=== PATIENT | female | born 1945 | race Two or more races ===

== ENCOUNTER 2017-06-11 23:49 | Inpatient (IN) | payer SELFPAY ==
[~2017-06-11] VITALS: Ht 157.5 cm; Wt 68.0 kg
--- NOTE | 2017-06-12 00:12 | PHYS DOC ---
Adult General Chief Complaint Chief Complaint: HYPERGLYCEMIA HPI HPI Patient is a 72 year old F who presents with elevated blood sugars. Patient is an insulin dependent diabetic who is having an elevated blood sugars at home. Patient is B[place]an-speaking but family is translating. Patient describes epigastric pain associated with her elevated blood sugars. Patient complains of nausea with no vomiting. Patient states blood sugars at home and been in the 500s. Patient complains of a dry mouth. Patient denies any fevers. Patient is no other complaints. Review of Systems Review of Systems GEN: Elevated blood sugars HEENT: Denies blurred vision, sore throat CV: Denies chest pain RESP: Denies shortness of air, cough GI: Epigastric pain with nausea NEURO: Denies confusion, dizziness MSK: Denies weakness, joint pain/swelling Current Medications Current Medications Current Medications Medications (Trade) Dose Ordered Sig/Tracey Start Time Stop Time Status Last Admin Dose Admin Info (Do NOT chart on this entry -- for MONITORING) 1 each PRN DAILY PRN 06/12/17 00:45 06/14/17 00:44 Iohexol (Omnipaque 300 Mg/ml) 75 ml 1X ONCE 06/12/17 00:45 06/12/17 00:46 DC 06/12/17 01:15 75 ML Metoclopramide HCl (Reglan) 10 mg STK-MED ONCE 06/12/17 00:18 06/12/17 00:19 DC Sodium Chloride 1,000 ml @ 1,000 mls/hr 1X ONCE 06/12/17 00:30 06/12/17 01:29 DC 06/12/17 00:20 1,000 MLS/HR Allergies Allergies Allergies Coded Allergies Type Severity Reaction Last Updated Verified No Known Drug Allergies 06/12/17 No Physical Exam Physical Exam GEN.: No apparent distress. Alert and oriented. HEENT: Head is normocephalic, atraumatic NECK: Supple. LUNGS: CTAB. HEART: RRR, S1, S2 present. Peripheral pulses intact ABDOMEN: Soft, tenderness to palpation to the epigastric area with no rebound tenderness and no guarding and no abdominal distention. Positive bowel sounds. EXTREMITIES: Without any cyanosis. NEUROLOGIC: Normal speech, normal tone PSYCHIATRIC: Normal affect, normal mood. SKIN: No ulcerations Current Patient Data Vital Signs Vital Signs Date Time Temp Pulse Resp B/P (MAP) Pulse Ox O2 Delivery O2 Flow Rate FiO2 10/22/17 00:05 98.4 84 22 174/99 (124) 95 Room Air 98.4 Lab Values Laboratory Tests Test 06/12/17 00:01 06/12/17 00:10 06/12/17 00:25 Glucose (Fingerstick) 452 mg/dL (70-99) H White Blood Count 6.3 x10^3/uL (4.0-11.0) Red Blood Count 4.39 x10^6/uL (3.50-5.40) Hemoglobin 13.1 g/dL (12.0-15.5) Hematocrit 38.9 % (36.0-47.0) Mean Corpuscular Volume 89 fL (79-100) Mean Corpuscular Hemoglobin 30 pg (25-35) Mean Corpuscular Hemoglobin Concent 34 g/dL (31-37) Red Cell Distribution Width 13.4 % (11.5-14.5) Platelet Count 212 x10^3/uL (140-400) Neutrophils (%) (Auto) 47 % (31-73) Lymphocytes (%) (Auto) 43 % (24-48) Monocytes (%) (Auto) 7 % (0-9) Eosinophils (%) (Auto) 1 % (0-3) Basophils (%) (Auto) 2 % (0-3) Neutrophils # (Auto) 3.0 x10^3uL (1.8-7.7) Lymphocytes # (Auto) 2.7 x10^3/uL (1.0-4.8) Monocytes # (Auto) 0.5 x10^3/uL (0.0-1.1) Eosinophils # (Auto) 0.1 x10^3/uL (0.0-0.7) Basophils # (Auto) 0.1 x10^3/uL (0.0-0.2) Sodium Level 137 mmol/L (136-145) Potassium Level 3.8 mmol/L (3.5-5.1) Chloride Level 101 mmol/L (98-107) Carbon Dioxide Level 23 mmol/L (21-32) Anion Gap 13 (6-14) Blood Urea Nitrogen 10 mg/dL (7-20) Creatinine 0.8 mg/dL (0.6-1.0) Estimated GFR (Cockcroft-Gault) 70.9 BUN/Creatinine Ratio 13 (6-20) Glucose Level 488 mg/dL (70-99) H Calcium Level 8.8 mg/dL (8.5-10.1) Total Bilirubin 0.3 mg/dL (0.2-1.0) Aspartate Amino Transferase (AST) 13 U/L (15-37) L Alanine Aminotransferase (ALT) 20 U/L (14-59) Alkaline Phosphatase 137 U/L (46-116) H Total Protein 7.1 g/dL (6.4-8.2) Albumin 3.4 g/dL (3.4-5.0) Albumin/Globulin Ratio 0.9 (1.0-1.7) L Lipase 222 U/L (73-393) Urine Collection Type U cath Urine Color Yellow Urine Clarity Clear Urine pH 7.0 Urine Specific [place] >=1.030 Urine Protein Negative mg/dL (NEG-TRACE) Urine Glucose (UA) >=1000 mg/dL (NEG) Urine Ketones (Stick) Negative mg/dL (NEG) Urine Blood Negative (NEG) Urine Nitrite Negative (NEG) Urine Bilirubin Negative (NEG) Urine Urobilinogen Dipstick 0.2 mg/dL (0.2 mg/dL) Urine Leukocyte Esterase Negative (NEG) Urine RBC Occ /HPF (0-2) Urine WBC Occ /HPF (0-4) Urine Squamous Epithelial Cells Occ /LPF Urine Amorphous Sediment Present /HPF Urine Bacteria 0 /HPF (0-FEW) Laboratory Tests 06/12/17 00:10 Laboratory Tests 06/12/17 00:10 EKG EKG [] Radiology/Procedures Radiology/Procedures CT scan abdomen and pelvis NAD[] Course & Med Decision Making Course & Med Decision Making Pertinent Labs and Imaging studies reviewed. (See chart for details) ED course: Patient was seen and examined emergency room abdominal workup was ordered along with a CT scan abdomen pelvis 0132: On reevaluation patient still having some nausea and vomiting, unexplained to the patient and family that she is not in DKA but will admit for further evaluation and management. Discussed CC/HP/PMH with Dr. Ramirez and recommends admit [] MDM: After reviewing the chart, CC/HPI/PMH, physical exam, [lab results], [ radiological results], I do not believe the patient has a intra-abdominal emergency or is in acute DKA but will admit the patient for further lesion and management of her hyperglycemia and hypertension. [] Dragon Disclaimer Dragon Disclaimer This electronic medical record was generated, in whole or in part, using a voice recognition dictation system. Departure Departure Impression: Primary Impression: Hyperglycemia Additional Impression: Hypertension Disposition: ADMITTED INPATIENT Admitting Physician: Other (Dr. Ramirez) Condition: STABLE Referrals: NO PCP (PCP) Problem Qualifiers EMMETT ART DO Jun 12, 2017 00:12
[2017-06-12] MEDS ORDERED: METOCLOPRAMIDE HCL 10 MG/2 ML VIAL. ONE (00:18)
[2017-06-12 00:26] LABS: BASO # 0.1 x10^3/uL (0.0-0.2); BASO % 2 % (0-3); EOS % 1 % (0-3); HEMATOCRIT 38.9 % (36.0-47.0); HEMOGLOBIN 13.1 g/dL (12.0-15.5); LYMPH # 2.7 x10^3/uL (1.0-4.8); LYMPH % 43 % (24-48); MEAN CORPUSCULAR HEMOGLOBIN 30 pg (25-35); MEAN CORPUSCULAR HGB CONC 34 g/dL (31-37); MEAN CORPUSCULAR VOLUME 89 fL (79-100); MONO % 7 % (0-9); NEUT % 47 % (31-73); PLATELET COUNT 212 x10^3/uL (140-400); RED BLOOD COUNT 4.39 x10^6/uL (3.50-5.40); RED CELL DISTRIBUTION WIDTH 13.4 % (11.5-14.5); WHITE BLOOD COUNT 6.3 x10^3/uL (4.0-11.0)
[2017-06-12] MEDS ORDERED: METOCLOPRAMIDE HCL 10 MG/2 ML VIAL. IV ONE (00:30)
[2017-06-12] MEDS ORDERED: IV NORMAL SALINE 1000ML BAG 1,000 ML IV ONE ×2 (00:30→01:45)
[2017-06-12 00:42] LABS: BILIRUBIN,URINE NEGATIVE (NEG); GLUCOSE,URINE >=1000 mg/dL (NEG); NITRITE,URINE NEGATIVE (NEG); PROTEIN,URINE NEGATIVE (NEG-TRACE); UROBILINOGEN,URINE 0.2 mg/dL (0.2 mg/dL)
[2017-06-12] MEDS ORDERED: CONTRAST GIVEN MC PRN (00:45)
[2017-06-12] MEDS ORDERED: IOHEXOL 300 MG/ML 75 ML VIAL IV ONE (00:45)
[2017-06-12 00:47] LABS: CALCIUM 8.8 mg/dL (8.5-10.1); CREATININE 0.8 mg/dL (0.6-1.0); GFR 70.9; POTASSIUM 3.8 mmol/L (3.5-5.1)
[2017-06-12 00:50] LABS: ALBUMIN 3.4 g/dL (3.4-5.0); ALBUMIN/GLOBULIN RATIO 0.9 (1.0-1.7); TOTAL BILIRUBIN 0.3 mg/dL (0.2-1.0); TOTAL PROTEIN 7.1 g/dL (6.4-8.2)
[2017-06-12 01:02] LABS: BACTERIA,URINE 0 /HPF (0-FEW); RBC,URINE OCC /HPF (0-2); WBC,URINE OCC /HPF (0-4)
[2017-06-12 01:03] LABS: SQUAMOUS EPITHELIAL CELL,UR OCC /LPF
--- NOTE | 2017-06-12 01:21 | RAD ---
CT ABD PELV W/ IV CONTRST ONLY dated 06/12/2017 1:01 AM Indication: Abdominal pain.abd pain; Omni 300, 75ml. Comparison: No comparison is available. Technique: Contiguous axial imaging the abdomen and pelvis performed after the intravenous administration of 75 cc Omnipaque 300 One or more of the following individualized dose reduction techniques were utilized for this examination: 1. Automated exposure control 2. Adjustment of the mA and/or kV according to patient size 3. Use of iterative reconstruction technique Findings: Limited images of lung bases are clear. Heart size within normal limits. No pleural or pericardial effusion. Liver, spleen, pancreas, adrenal glands, gallbladder and kidneys are unremarkable. No hydronephrosis. Unopacified GI tract is normal in caliber and contour. No focal bowel wall thickening. No inflammatory stranding in the mesentery. The appendix is normal in caliber. No ascites or lymphadenopathy. Images of pelvis show mildly distended urinary bladder. Uterus and adnexa are unremarkable. No free pelvic fluid or pelvic lymphadenopathy. Bone windows show no acute findings. Mild multilevel spondylosis. IMPRESSION: 1. No acute abnormality of abdomen or pelvis. Normal appendix. Electronically signed by: Og Florence MD (06/12/2017 1:18 AM) [facility]
[2017-06-12] MEDS ORDERED: MORPHINE SULFATE 4 MG/ML DISP.SYRIN. IV PRN (01:45)
[2017-06-12] MEDS ORDERED: ONDANSETRON PF 4 MG/2 ML VIAL. IV PRN (01:45)
[2017-06-12] MEDS ORDERED: DEXTROSE 50% 25 GM / 50ML DISP.SYRIN. IV PRN (02:30)
[2017-06-12] MEDS ORDERED: MECLIZINE HCL 12.5 MG TABLET. PO PRN (02:30)
[2017-06-12 02:43] VITALS: BP 147/70
[2017-06-12] MEDS ORDERED: FLU VACC QS2017-18 (36MOS+)/PF 0.5 ML SYRINGE. VAX IM ONE ×2 (03:00→09:00)
[2017-06-12] MEDS ORDERED: INSULIN ASPART 300 UNITS/3 ML INSULN.PEN SQ ONE (03:15)
[2017-06-12] MEDS: IV NORMAL SALINE 1000ML BAG 1,000 ML IV SCH ×2 (03:16→09:35)
[2017-06-12 03:27] VITALS: BP 147/70
[2017-06-12] MEDS ORDERED: INFLUENZA VAX SCREEN BY RX. MC PRN (03:45)
[2017-06-12 07:00] VITALS: BP 101/47
[2017-06-12] MEDS: INSULIN ASPART 300 UNITS/3 ML INSULN.PEN SQ SCH ×2 (08:00→12:05)
--- NOTE | 2017-06-12 09:13 | PDOC1 ---
History and Physical Date of Admission Date of Admission DATE: 06/12/17 TIME: 09:09 Source Source: Chart review, Patient History of Present Illness History of Present Illness Holli is a 72 year old F who was admitted overnight, acute abd pain and nausea and vomiting. She also had markedly elevated blood sugars. Patient is an insulin dependent diabetic who is having an elevated blood sugars at home. Patient is [place]ian- speaking but family is translating. Patient describes epigastric pain associated with her elevated blood sugars. Patient complains of nausea with no vomiting. Patient states blood sugars at home and been in the 500s. Patient complains of a dry mouth. Patient denies any fevers. Patient is no other complaints. Past Medical History Cardiovascular: HTN Endocrine: Diabetes Family History Family History: Diabetes Social History Smoke: No ALCOHOL: none Drugs: None Current Problem List Problem List Problems Medical Problems: (1) Hyperglycemia Status: Acute (2) Hypertension Status: Acute Problems: Current Medications Current Medications Current Medications Sodium Chloride 1,000 ml @ 1,000 mls/hr 1X ONCE IV Last administered on 06/12 00:20; Start 06/12/17 at 00:30; Stop 06/12/17 at 01:29; Status DC Metoclopramide HCl (Reglan) 10 mg 1X ONCE IV Last administered on 06/12/17 00:20; Start 06/12/17 at 00:30; Stop 06/12/17 at 00:31; Status DC Metoclopramide HCl (Reglan) 10 mg STK-MED ONCE .ROUTE ; Start 06/12/17 at 00:18 ; Stop 06/12/17 at 00:19; Status DC Iohexol (Omnipaque 300 Mg/ml) 75 ml 1X ONCE IV Last administered on 01:15; Start 06/12/17 at 00:45; Stop 06/12/17 at 00:46; Status DC Info (Do NOT chart on this entry -- for MONITORING) 1 each PRN DAILY PRN MC SEE COMMENTS; Start 06/12/17 at 00:45; Stop 06/14/17 at 00:44 Ondansetron HCl (Zofran) 4 mg PRN Q8HRS PRN IV NAUSEA/VOMITING Last administered on 06/12/17 01:52; Start 06/12/17 at 01:45; Stop 06/13/17 at 01 :44 Morphine Sulfate 4 mg PRN Q2HR PRN IV PAIN Last administered on 06/12/17 01: 52; Start 06/12/17 at 01:45; Stop 06/13/17 at 01:44 Sodium Chloride 1,000 ml @ 125 mls/hr Q8H IV Last administered on 06/12/17 03:16; Start 06/12/17 at 01:35; Stop 06/13/17 at 01:34 Sodium Chloride 1,000 ml @ 1,000 mls/hr 1X ONCE IV Last administered on 06/12 01:52; Start 06/12/17 at 01:45; Stop 06/12/17 at 02:44; Status DC Insulin Aspart (NovoLOG) 0-9 UNITS TIDWMEALS SQ ; Start 06/12/17 at 08:00 Dextrose (Dextrose 50%-Water Syringe) 12.5 gm PRN Q15MIN PRN IV SEE COMMENTS; Start 06/12/17 at 02:30 Meclizine HCl (Antivert) 12.5 mg PRN Q6HRS PRN PO DIZZINESS Last administered on 06/12/17 03:16; Start 06/12/17 at 02:30 Insulin Aspart (NovoLOG) 9 units 1X ONCE SQ Last administered on 06/12/17 03 :19; Start 06/12/17 at 03:15; Stop 06/12/17 at 03:16; Status DC Influenza Virus Vaccine Quadrival (Fluarix Quad [id number] Syringe) 0.5 ml ONCE ONCE VAX IM ; Start 06/12/17 at 03:00; Stop 06/12/17 at 03:01; Status UNV Influenza Virus Vaccine Quadrival (Fluarix Quad [id number] Syringe) 0.5 ml ONCE ONCE VAX IM ; Start 06/12/17 at 09:00; Stop 06/12/17 at 09:01; Status DC Info (Do NOT chart on this placeholder) 1 each PRN 1X PRN MC SEE COMMENTS; Start 06/12/17 at 03:45; Status Cancel Allergies Allergies: Coded Allergies: No Known Drug Allergies (Unverified , 06/12/17) ROS General: YES: Fatigue, Malaise, No: Chills, Night Sweats, Appetite, Other PSYCHOLOGICAL ROS: No: Anxiety, Behavioral Disorder, Concentration difficultie , Decreased libido, Depression, Disorientation, Hallucinations, Hostility, Irritablity, Memory difficulties, Mood Swings, Obsessive thoughts, Physical abuse, Sexual abuse, Sleep disturbances, Suicidal ideation, Other Respiratory: No: Cough, Hemoptysis, Orthopnea, Pleuritic Pain, Shortness of breath, SOB with excertion, Sputum Changes, Stridor, Tachypnea, Wheezing, Other Cardiovascular: No Chest Pain, No Palpitations, No Orthopnea, No Paroxysmal Noc. Dyspnea, No Edema, No Lt Headedness, No Other Gastrointestinal: Yes Nausea, No Vomiting, No Abdominal Pain, No Diarrhea, No Constipation, No Melena, No Hematochezia, No Other Genitourinary: No Dysuria, No Frequency, No Incontinence, No Hematuria, No Retention, No Discharge, No Urgency, No Pain, No Flank Pain, No Other, No , No , No , No , No , No , No Musculoskeletal: No Gait Disturbance, No Joint Pain, No Joint Stiffness, No Joint Swelling, No Muscle Pain, No Muscular Weakness, No Pain In:, No Swelling In:, No Other Neurological: No Behavorial Changes, No Bowel/Bladder ControlChng, No Confusion , No Dizziness, No Gait Disturbance, No Headaches, No Impaired Coord/balance, No Memory Loss, No Numbness/Tingling, No Seizures, No Speech Problems, No Tremors, No Visual Changes, No Weakness, No Other Skin: No Dry Skin, No Eczema, No Hair Changes, No Lumps, No Mole Changes, No Mottling, No Nail Changes, No Pruritus, No Rash, No Skin Lesion Changes, No Other, No Acne Physical Exam General: Alert, Oriented X3, Cooperative, No acute distress HEENT: EOMI, Mucous membr. moist/pink Lungs: Normal air movement Heart: no gallops, no murmurs Abdomen: Normal bowel sounds, Soft, Other (tender, diffusely) Rectal Exam: not examined Extremities: No clubbing Skin: No rashes, No breakdown Neuro: Normal speech, Normal tone, Sensation intact Psych/Mental Status: Mental status NL, Mood NL Vitals Vitals Vital Signs Date Time Temp Pulse Resp B/P (MAP) Pulse Ox O2 Delivery O2 Flow Rate FiO2 06/12/17 03:27 98.4 76 147/70 (95) 97 Room Air 98.4 06/12/17 01:30 16 Labs Labs Laboratory Tests Test 06/12/17 00:01 06/12/17 00:10 06/12/17 00:25 06/12/17 01:47 Glucose (Fingerstick) 452 mg/dL (70-99) 372 mg/dL (70-99) White Blood Count 6.3 x10^3/uL (4.0-11.0) Red Blood Count 4.39 x10^6/uL (3.50-5.40) Hemoglobin 13.1 g/dL (12.0-15.5) Hematocrit 38.9 % (36.0-47.0) Mean Corpuscular Volume 89 fL (79-100) Mean Corpuscular Hemoglobin 30 pg (25-35) Mean Corpuscular Hemoglobin Concent 34 g/dL (31-37) Red Cell Distribution Width 13.4 % (11.5-14.5) Platelet Count 212 x10^3/uL (140-400) Neutrophils (%) (Auto) 47 % (31-73) Lymphocytes (%) (Auto) 43 % (24-48) Monocytes (%) (Auto) 7 % (0-9) Eosinophils (%) (Auto) 1 % (0-3) Basophils (%) (Auto) 2 % (0-3) Neutrophils # (Auto) 3.0 x10^3uL (1.8-7.7) Lymphocytes # (Auto) 2.7 x10^3/uL (1.0-4.8) Monocytes # (Auto) 0.5 x10^3/uL (0.0-1.1) Eosinophils # (Auto) 0.1 x10^3/uL (0.0-0.7) Basophils # (Auto) 0.1 x10^3/uL (0.0-0.2) Sodium Level 137 mmol/L (136-145) Potassium Level 3.8 mmol/L (3.5-5.1) Chloride Level 101 mmol/L (98-107) Carbon Dioxide Level 23 mmol/L (21-32) Anion Gap 13 (6-14) Blood Urea Nitrogen 10 mg/dL (7-20) Creatinine 0.8 mg/dL (0.6-1.0) Estimated GFR (Cockcroft-Gault) 70.9 BUN/Creatinine Ratio 13 (6-20) Glucose Level 488 mg/dL (70-99) Calcium Level 8.8 mg/dL (8.5-10.1) Total Bilirubin 0.3 mg/dL (0.2-1.0) Aspartate Amino Transf (AST/SGOT) 13 U/L (15-37) Alanine Aminotransferase (ALT/SGPT) 20 U/L (14-59) Alkaline Phosphatase 137 U/L (46-116) Total Protein 7.1 g/dL (6.4-8.2) Albumin 3.4 g/dL (3.4-5.0) Albumin/Globulin Ratio 0.9 (1.0-1.7) Lipase 222 U/L (73-393) Urine Collection Type U cath Urine Color Yellow Urine Clarity Clear Urine pH 7.0 Urine Specific [place] >=1.030 Urine Protein Negative mg/dL (NEG-TRACE) Urine Glucose (UA) >=1000 mg/dL (NEG) Urine Ketones (Stick) Negative mg/dL (NEG) Urine Blood Negative (NEG) Urine Nitrite Negative (NEG) Urine Bilirubin Negative (NEG) Urine Urobilinogen Dipstick 0.2 mg/dL (0.2 mg/dL) Urine Leukocyte Esterase Negative (NEG) Urine RBC Occ /HPF (0-2) Urine WBC Occ /HPF (0-4) Urine Squamous Epithelial Cells Occ /LPF Urine Amorphous Sediment Present /HPF Urine Bacteria 0 /HPF (0-FEW) Laboratory Tests Test 06/12/17 00:01 06/12/17 00:10 06/12/17 00:25 06/12/17 01:47 Glucose (Fingerstick) 452 mg/dL (70-99) 372 mg/dL (70-99) White Blood Count 6.3 x10^3/uL (4.0-11.0) Red Blood Count 4.39 x10^6/uL (3.50-5.40) Hemoglobin 13.1 g/dL (12.0-15.5) Hematocrit 38.9 % (36.0-47.0) Mean Corpuscular Volume 89 fL (79-100) Mean Corpuscular Hemoglobin 30 pg (25-35) Mean Corpuscular Hemoglobin Concent 34 g/dL (31-37) Red Cell Distribution Width 13.4 % (11.5-14.5) Platelet Count 212 x10^3/uL (140-400) Neutrophils (%) (Auto) 47 % (31-73) Lymphocytes (%) (Auto) 43 % (24-48) Monocytes (%) (Auto) 7 % (0-9) Eosinophils (%) (Auto) 1 % (0-3) Basophils (%) (Auto) 2 % (0-3) Neutrophils # (Auto) 3.0 x10^3uL (1.8-7.7) Lymphocytes # (Auto) 2.7 x10^3/uL (1.0-4.8) Monocytes # (Auto) 0.5 x10^3/uL (0.0-1.1) Eosinophils # (Auto) 0.1 x10^3/uL (0.0-0.7) Basophils # (Auto) 0.1 x10^3/uL (0.0-0.2) Sodium Level 137 mmol/L (136-145) Potassium Level 3.8 mmol/L (3.5-5.1) Chloride Level 101 mmol/L (98-107) Carbon Dioxide Level 23 mmol/L (21-32) Anion Gap 13 (6-14) Blood Urea Nitrogen 10 mg/dL (7-20) Creatinine 0.8 mg/dL (0.6-1.0) Estimated GFR (Cockcroft-Gault) 70.9 BUN/Creatinine Ratio 13 (6-20) Glucose Level 488 mg/dL (70-99) Calcium Level 8.8 mg/dL (8.5-10.1) Total Bilirubin 0.3 mg/dL (0.2-1.0) Aspartate Amino Transf (AST/SGOT) 13 U/L (15-37) Alanine Aminotransferase (ALT/SGPT) 20 U/L (14-59) Alkaline Phosphatase 137 U/L (46-116) Total Protein 7.1 g/dL (6.4-8.2) Albumin 3.4 g/dL (3.4-5.0) Albumin/Globulin Ratio 0.9 (1.0-1.7) Lipase 222 U/L (73-393) Urine Collection Type U cath Urine Color Yellow Urine Clarity Clear Urine pH 7.0 Urine Specific [place] >=1.030 Urine Protein Negative mg/dL (NEG-TRACE) Urine Glucose (UA) >=1000 mg/dL (NEG) Urine Ketones (Stick) Negative mg/dL (NEG) Urine Blood Negative (NEG) Urine Nitrite Negative (NEG) Urine Bilirubin Negative (NEG) Urine Urobilinogen Dipstick 0.2 mg/dL (0.2 mg/dL) Urine Leukocyte Esterase Negative (NEG) Urine RBC Occ /HPF (0-2) Urine WBC Occ /HPF (0-4) Urine Squamous Epithelial Cells Occ /LPF Urine Amorphous Sediment Present /HPF Urine Bacteria 0 /HPF (0-FEW) VTE Prophylaxis Ordered VTE Prophylaxis Devices: No VTE Pharmacological Prophylaxi: Yes Assessment/Plan Assessment/Plan Acute viral enteritis, Dm2 insulin dependent nausea and vomiting blood sugars > 500, now down to 97 cannot remember other home meds, NADIA JAQUEZ MD Jun 12, 2017 09:13
== END 2017-06-12 12:30 | disposition home or self-care (01) | DRG 392 ==
LOC: ER 23:49 → 5 NORTH 06-12 01:30
PROVIDERS: ADMIT Internal Medicine Hematology & Oncology; ATTEND Internal Medicine Hematology & Oncology
DX: A08.4 Viral intestinal infection, unspecified (principal); E11.65 Type 2 diabetes mellitus with hyperglycemia; I10 Essential (primary) hypertension; R11.2 Nausea with vomiting, unspecified; Z79.4 Long term (current) use of insulin; Z83.3 Family history of diabetes mellitus; Z23 Encounter for immunization
CPT/HCPCS: 36415; 51701; 74177; 80053; 81001; 82962; 83690; 85025; 90686; 96361; 96374; 96375; J1815; J2270; J2405; J2765; J7030; J8597; Q9967; 99285-25